=== PATIENT | male | born 1930 | race Caucasian/White ===

== ENCOUNTER 2018-01-09 16:34 | Inpatient (IN) | payer MEDICARE, MEDICAID ==
[~2018-01-09] VITALS: Ht 172.7 cm; Wt 90.0 kg
[~2018-01-09 16:34] MED LIST: ASPI-515 PO; CLOP75TA52 PO; FURO40TA6 PO; LEVO100T5 PO; POTA20TA37 PO; [UNRECOGNIZED DRUG - REMARK]
[2018-01-09 18:21] LABS: MD YES; MEAN CORPUSCULAR HEMOGLOBIN 28.2 pg (27.5-34.5); MEAN CORPUSCULAR HGB CONC 32.8 g/dL (33.2-36.2); PLATELET COUNT 368 x10^3/uL (130-400); RED BLOOD COUNT 3.83 x10^6/uL (4.38-5.82)
[2018-01-09 18:33] LABS: ALANINE AMINOTRANSFERASE 15 U/L (12-78); ALBUMIN 2.7 g/dL (3.4-5.0); ANION GAP 9 mmol/L (5-15); CALCIUM 9.1 mg/dL (8.5-10.1); CHLORIDE 101 mmol/L (98-107); CREATININE 1.94 mg/dL (0.7-1.3)
[2018-01-09 18:34] LABS: INTERNATIONAL NORMALIZED RATIO 1.02 (0.93-1.1); PROTHROMBIN TIME 10.5 Seconds (9.6-11.5)
[2018-01-09 18:38] LABS: ALKALINE PHOSPHATASE 92 U/L (45-117); BILIRUBIN,TOTAL 0.8 mg/dL (0.2-1.0); TOTAL PROTEIN 7.6 g/dL (6.4-8.2); TROPONIN I 0.018 ng/mL (0.000-0.045)
[2018-01-09 19:03] LABS: BANDS%(MANUAL) 2 % (0-7); SEG#(MANUAL) 8.98 x10^3/uL (1.8-6.8); SEGS% (MANUAL) 88 % (42-75)
[2018-01-09 19:04] LABS: <PLATELET ESTIMATE> ADEQUATE; <PLT MORPHOLOGY> NORMAL PLT MORPH; <RBC MORPHOLOGY> NORMAL
[2018-01-09 19:05] LABS: LYMPH#(MANUAL) 1.02 x10^3/uL (1-3.4); LYMPHS% (MANUAL) 10 % (22-44)
[2018-01-09] MEDS ORDERED: FURO20TA3 PO (19:22)
[2018-01-09] MEDS ORDERED: TRAZ-137 PO (19:22)
[2018-01-09] MEDS ORDERED: ATOR40TA78 PO (19:22)
[2018-01-09] MEDS ORDERED: [UNRECOGNIZED DRUG - OTHER] PO (19:22)
[2018-01-09] MEDS ORDERED: LISI-167 PO (19:22)
[2018-01-09] MEDS ORDERED: POTA20LI PO (19:22)
[2018-01-09] MEDS ORDERED: METO-282 PO (19:22)
[2018-01-09] MEDS ORDERED: SODIUM CHLORIDE 0.9% 1,000 ML IV SCH (19:54)
[2018-01-09] MEDS ORDERED: DOCUSATE 100 MG CAPSULE PO PRN (20:00)
[2018-01-09] MEDS ORDERED: BISACODYL 10 MG SUPP PR PRN (20:00)
[2018-01-09] MEDS ORDERED: POLYETHYLENE GLYCOL 17 GM PACKET PO PRN (20:00)
[2018-01-09] MEDS ORDERED: ACETAMINOPHEN 325 MG TABLET PO PRN (20:00)
[2018-01-09] MEDS ORDERED: ONDANSETRON 2MG/ML, 2ML IVPush PRN (20:00)
[2018-01-09 20:25] VITALS: BP 128/74
[2018-01-09] MEDS: TRAZODONE 100MG TABLET PO PRN (21:11)
[2018-01-09] MEDS: HEPARIN 5,000 UNITS/ML, 1ML SQ SCH (21:11)
[2018-01-09] MEDS: ATORVASTATIN 40 MG TABLET PO SCH (21:11)
[2018-01-10 01:17] VITALS: BP 106/64
[2018-01-10] MEDS: HEPARIN 5,000 UNITS/ML, 1ML SQ SCH ×2 (05:27→16:35)
[2018-01-10 05:34] LABS: MICROSCOPIC NOT IND
[2018-01-10 05:38] LABS: CULTURE INDICATED? NO
[2018-01-10 05:44] LABS: CREATININE,URINE RANDOM 80.6 mg/dL
[2018-01-10 06:00] LABS: ANION GAP 9 mmol/L (5-15); CALCIUM 8.7 mg/dL (8.5-10.1); CHLORIDE 104 mmol/L (98-107)
[2018-01-10 06:01] LABS: CREATININE 1.79 mg/dL (0.7-1.3)
[2018-01-10 06:04] LABS: BASOPHILS # (AUTO) 0.03 x10^3/uL (0-0.1); BASOPHILS % (AUTO) 1 % (0-1); EOSINOPHILS % (AUTO) 2 % (1-7); LYMPHOCYTES # (AUTO) 0.96 x10^3/uL (1-3.4); LYMPHOCYTES % (AUTO) 16 % (22-44); MD NO; MEAN CORPUSCULAR HEMOGLOBIN 27.6 pg (27.5-34.5); MEAN CORPUSCULAR HGB CONC 32.1 g/dL (33.2-36.2); MEAN CORPUSCULAR VOLUME 85.8 fL (81-97); MEAN PLATELET VOLUME 8.4 fL (7.4-10.4); MONOCYTES # (AUTO) 0.71 x10^3/uL (0.2-0.8); MONOCYTES % (AUTO) 12 % (2-9); NEUTROPHILS % (AUTO) 70 % (42-75); PLATELET COUNT 287 x10^3/uL (130-400); RED BLOOD COUNT 3.37 x10^6/uL (4.38-5.82); RED CELL DISTRIBUTION WIDTH 15.8 % (9.4-14.8)
[2018-01-10 07:07] VITALS: BP 107/56
[2018-01-10] MEDS ORDERED: LISINOPRIL 10 MG TABLET PO SCH (09:00)
[2018-01-10] MEDS: CLOPIDOGREL 75 MG TABLET PO SCH (09:38)
[2018-01-10] MEDS: ASPIRIN 81 MG TABLET EC PO SCH (09:39)
[2018-01-10] MEDS: METOPROLOL SUCCINATE 25 MG TAB.ER.24H PO SCH (09:39)
[2018-01-10] MEDS: LEVOTHYROXINE 100 MCG TABLET PO SCH (09:42)
[2018-01-10 12:33] VITALS: BP 98/57
[2018-01-10] MEDS: SODIUM CHLORIDE 0.9% 1,000 ML IV SCH (14:30)
[2018-01-10 20:20] VITALS: BP 123/61
[2018-01-10 20:25] VITALS: BP 122/64
[2018-01-10 20:32] VITALS: BP 120/68
[2018-01-10] MEDS: TRAZODONE 100MG TABLET PO PRN (20:50)
[2018-01-10] MEDS: ATORVASTATIN 40 MG TABLET PO SCH (20:50)
[2018-01-11] VITALS (10 sets, daily range): BP systolic 103–128; BP diastolic 48–76
[2018-01-11] MEDS: HEPARIN 5,000 UNITS/ML, 1ML SQ SCH ×3 (01:00→18:24)
[2018-01-11] MEDS: SODIUM CHLORIDE 0.9% 1,000 ML IV SCH (01:01)
[2018-01-11 05:39] LABS: BASOPHILS # (AUTO) 0.03 x10^3/uL (0-0.1); BASOPHILS % (AUTO) 1 % (0-1); EOSINOPHILS # (AUTO) 0.12 x10^3/uL (0-0.4); EOSINOPHILS % (AUTO) 2 % (1-7); LYMPHOCYTES # (AUTO) 0.98 x10^3/uL (1-3.4); LYMPHOCYTES % (AUTO) 17 % (22-44); MD NO; MEAN CORPUSCULAR HEMOGLOBIN 28.1 pg (27.5-34.5); MEAN CORPUSCULAR HGB CONC 32.3 g/dL (33.2-36.2); MEAN CORPUSCULAR VOLUME 87.1 fL (81-97); MEAN PLATELET VOLUME 8.4 fL (7.4-10.4); MONOCYTES # (AUTO) 0.59 x10^3/uL (0.2-0.8); MONOCYTES % (AUTO) 10 % (2-9); NEUTROPHILS # (AUTO) 4.02 x10^3/uL (1.8-6.8); NEUTROPHILS % (AUTO) 70 % (42-75); PLATELET COUNT 291 x10^3/uL (130-400); RED BLOOD COUNT 3.36 x10^6/uL (4.38-5.82); RED CELL DISTRIBUTION WIDTH 16.1 % (9.4-14.8)
[2018-01-11 05:44] LABS: CHLORIDE 107 mmol/L (98-107)
[2018-01-11 05:49] LABS: ALBUMIN 2.3 g/dL (3.4-5.0); ANION GAP 7 mmol/L (5-15); CALCIUM 8.5 mg/dL (8.5-10.1); CREATININE 1.49 mg/dL (0.7-1.3)
[2018-01-11] MEDS: LEVOTHYROXINE 100 MCG TABLET PO SCH (05:56)
[2018-01-11] MEDS: CLOPIDOGREL 75 MG TABLET PO SCH (08:29)
[2018-01-11] MEDS: ASPIRIN 81 MG TABLET EC PO SCH (08:29)
[2018-01-11] MEDS: METOPROLOL SUCCINATE 25 MG TAB.ER.24H PO SCH (08:29)
[2018-01-11] MEDS ORDERED: SODIUM CHLORIDE 0.45%, 1,000ML IVBOLUS ONE (09:30)
[2018-01-11 12:19] LABS: TROPONIN I 0.024 ng/mL (0.000-0.045)
[2018-01-11] MEDS: SODIUM CHLORIDE 0.45% 1,000 ML IV SCH (18:23)
[2018-01-11 20:10] LABS: TROPONIN I 0.031 ng/mL (0.000-0.045)
[2018-01-11] MEDS: ATORVASTATIN 40 MG TABLET PO SCH (21:53)
[2018-01-11] MEDS: TRAZODONE 100MG TABLET PO PRN (21:53)
[2018-01-12] VITALS (9 sets, daily range): BP systolic 111–142; BP diastolic 51–67
[2018-01-12] MEDS: HEPARIN 5,000 UNITS/ML, 1ML SQ SCH ×2 (00:55→08:16)
[2018-01-12] MEDS: SODIUM CHLORIDE 0.45% 1,000 ML IV SCH (02:44)
[2018-01-12] MEDS: LEVOTHYROXINE 100 MCG TABLET PO SCH (05:22)
[2018-01-12 05:42] LABS: BASOPHILS # (AUTO) 0.04 x10^3/uL (0-0.1); BASOPHILS % (AUTO) 1 % (0-1); EOSINOPHILS # (AUTO) 0.14 x10^3/uL (0-0.4); EOSINOPHILS % (AUTO) 2 % (1-7); LYMPHOCYTES # (AUTO) 0.91 x10^3/uL (1-3.4); LYMPHOCYTES % (AUTO) 16 % (22-44); MD NO; MEAN CORPUSCULAR HEMOGLOBIN 28.4 pg (27.5-34.5); MEAN CORPUSCULAR HGB CONC 32.8 g/dL (33.2-36.2); MEAN CORPUSCULAR VOLUME 86.4 fL (81-97); MONOCYTES # (AUTO) 0.59 x10^3/uL (0.2-0.8); MONOCYTES % (AUTO) 10 % (2-9); NEUTROPHILS # (AUTO) 4.06 x10^3/uL (1.8-6.8); NEUTROPHILS % (AUTO) 71 % (42-75); PLATELET COUNT 267 x10^3/uL (130-400); RED BLOOD COUNT 3.28 x10^6/uL (4.38-5.82); RED CELL DISTRIBUTION WIDTH 15.4 % (9.4-14.8)
[2018-01-12 05:54] LABS: ALBUMIN 2.1 g/dL (3.4-5.0); ANION GAP 5 mmol/L (5-15); CALCIUM 8.3 mg/dL (8.5-10.1); CHLORIDE 107 mmol/L (98-107); CREATININE 1.38 mg/dL (0.7-1.3)
[2018-01-12 06:02] LABS: TROPONIN I 0.037 ng/mL (0.000-0.045)
[2018-01-12] MEDS: METOPROLOL SUCCINATE 25 MG TAB.ER.24H PO SCH (08:16)
[2018-01-12] MEDS: CLOPIDOGREL 75 MG TABLET PO SCH (08:16)
[2018-01-12] MEDS: ASPIRIN 81 MG TABLET EC PO SCH (08:17)
[2018-01-12] MEDS ORDERED: SODIUM CHLORIDE 0.9%, 500ML IVBOLUS ONE (09:00)
[2018-01-12] MEDS ORDERED: OMNIPAQUE 350 MG/ML, 100ML BOTTLE ONE (10:53)
[2018-01-12] MEDS ORDERED: METO-282 PO (17:30)
== END 2018-01-12 18:00 | disposition home or self-care (01) | DRG 682 ==
LOC: ED 18:00 → EDIP 19:07 → 4EST 20:26
PROVIDERS: ADMIT Internal Medicine; ATTEND Internal Medicine
DX: N17.0 Acute kidney failure with tubular necrosis (principal); E43 Unspecified severe protein-calorie malnutrition; E87.1 Hypo-osmolality and hyponatremia; I95.89 Other hypotension; N13.30 Unspecified hydronephrosis; D63.8 Anemia in other chronic diseases classified elsewhere; E03.9 Hypothyroidism, unspecified; E78.5 Hyperlipidemia, unspecified; G47.00 Insomnia, unspecified; I11.9 Hypertensive heart disease without heart failure; I25.10 Atherosclerotic heart disease of native coronary artery without angina pectoris; I48.2 Chronic atrial fibrillation; R91.8 Other nonspecific abnormal finding of lung field; K21.9 Gastro-esophageal reflux disease without esophagitis; R91.1 Solitary pulmonary nodule; D72.829 Elevated white blood cell count, unspecified; Z66 Do not resuscitate; Z79.02 Long term (current) use of antithrombotics/antiplatelets; Z95.1 Presence of aortocoronary bypass graft; Z96.641 Presence of right artificial hip joint; Z98.41 Cataract extraction status, right eye; Z98.42 Cataract extraction status, left eye; Z87.891 Personal history of nicotine dependence; Z68.30 Body mass index [BMI] 30.0-30.9, adult
CPT/HCPCS: 36415; 71045; 71250; 74177; 80048; 80053; 81003; 82040; 82436; 82570; 83735; 84100; 84133; 84300; 84484; 85025; 85610; 93005; 93306; 99285; J1644; Q9967; J7030; J7040